=== PATIENT | female | born 1985 | race Caucasian/White ===

== ENCOUNTER 2020-12-02 17:09 | Inpatient (IN) | payer OTHER, SELFPAY ==
[2020-12-02] VITALS (12 sets, daily range): BP systolic 126–136; BP diastolic 65–88; PULSE 72–100; RESP 16–18; TEMP 36.7–36.8; BMI 46.5
--- NOTE | 2020-12-02 17:54 | LDADM ---
This patient, Jaquelin Heard, was admitted to Labor/Delivery/Recovery 108 on 12/02/20 at 17:09. Plans for labor, pain management and were discussed with patient. Patient/family oriented to hospital policies and general routines including ID bracelet, bed and alarms, visiting hours, pain management, procedures, bathroom and other care routines, personal items, smoking policy, room service/diet and guest tray routines, security routines, and visiting hours. Patient/Family are encouraged to report perceived risks to care and to ask questions if they do not understand what they are told or what they should do. See OBIX for further documentation.
[2020-12-02 18:03] LABS: Basophils Percent Auto 0.2 % (0.2-1.2); Eosinophils Absolute Auto 0.1 K/mm3 (0-0.3); Eosinophils Percent Auto 0.4 % (0-4.4); Hematocrit 36.5 % (37.0-47.0); Immature Granulocyte Absolute 0.12 K/mm3 (0.00-0.031); Immature Granulocyte Percent A 0.9 % (0-0.5); Lymphocytes Absolute Auto 2.31 K/mm3 (0.9-3.2); Lymphocytes Percent Auto 17.3 % (18.3-44.2); Mean Corpuscular HGB Conc 32.9 g/dl (32-36); Mean Corpuscular Hemoglobin 28.2 pg (26-34); Mean Corpuscular Volume 85.9 fl (80-100); Mean Platelet Volume 10.5 fl (7.4-10.4); Monocytes Absolute Auto 0.7 K/mm3 (0.1-0.6); Monocytes Percent Auto 5.5 % (2.6-8.5); Neutrophils Absolute Auto 10.1 K/mm3 (1.3-6.7); Neutrophils Percent Auto 75.7 % (45.5-73.1); Platelet Count Result 308 k/mm3 (150-375); Red Blood Count 4.25 M/mm3 (4.2-5.4); Red Cell Distribution Width 13.4 % (11.5-14.5); White Blood Count 13.4 K/mm3 (4.5-10.0)
[2020-12-02 18:12] LABS: Alanine Aminotransferase 131 U/L (4-35); Albumin Level 3.8 g/dL (3.5-5.1); Alkaline Phosphatase 269 U/L (38-126); Anion Gap 7 mmol/L (8-16); Aspartate Amino Transferase 93 U/L (14-36); Bilirubin,Total 0.4 mg/dL (0.2-1.3); Blood Urea Nitrogen 11 mg/dL (7-17); Calcium 9.3 mg/dL (8.4-10.2); Carbon Dioxide 21 mmol/L (22-30); Chloride 108 mmol/L (98-107); Estimated Glomerular Filt Rate > 60; Glucose 91 mg/dL (65-105); Potassium 4.1 mmol/L (3.4-5.0); Sodium 136 mmol/L (137-145)
[2020-12-02] MEDS: DINOPROSTONE 10 MG VAG INSERT VAGINAL (18:26)
[2020-12-02 18:48] LABS: HIV 1/2 Ab P24 Ag Result Negative (Negative)
[2020-12-02 19:01] LABS: Uric Acid 4.8 mg/dL (2.5-7.5)
[2020-12-02] MEDS: INSULIN HUMAN NPH (*BKC) 100 UNITS/ML 60 UNITS SUB-Q (20:34)
[2020-12-02 20:45] LABS: Glucose Point of Care 82 mg/dl (65-105)
[2020-12-03] VITALS (99 sets, daily range): BP systolic 112–152; BP diastolic 49–103; PULSE 56–156; RESP 18; TEMP 36.8–36.9; O2SAT 98–100
[2020-12-03 06:02] LABS: Glucose Point of Care 102 mg/dl (65-105)
[2020-12-03] MEDS: OXYTOCIN 30 UNITS/NS 500 ML 30 UNITS/500 ML BAG IV CONT (07:35)
[2020-12-03 08:14] LABS: Glucose Point of Care 105 mg/dl (65-105)
[2020-12-03 10:02] LABS: Glucose Point of Care 81 mg/dl (65-105)
[2020-12-03 10:31] LABS: Rapid Plasma Reagin Non-Reactive (NonReactive)
[2020-12-03 12:11] LABS: Glucose Point of Care 81 mg/dl (65-105)
[2020-12-03] MEDS: DEXTROSE 5%/LACTATED RINGERS 1,000 ML 100 ML IV CONT (12:24)
--- NOTE | 2020-12-03 12:34 | PM.IMHP ---
H&P: HPI History of Present Illness Date/Time: 12/03/20 12:34 Patient at 36 weeks by an EDC of 12/30 20 consistent with first trimester ultrasound. PNC significant for cholestasis of causing transaminitis. The transaminitits and symptoms initially did not respond to Ursodial but did start to improve with the max dose of Ursodial 600mg three times a day. Liver enzymes did start to decrease after increasing the Ursodial. The bile acid level increased. She has had gestational hypertension work ups and several 24 hour urines which have been negative for diagnosis of gestational hypertension. She denies headache or scotomata or worsening right upper quadrant pain. Today her liver function test have increased from last level. She has a history of steatosis prior to and have had intermittent mild elevations of liver function test and has been followed by a liver specialist. During this when her liver enzymes started increasing, peak in October. She was evaluated by [facility]. She had a liver ultrasound which was consistent with steatosis. The plan was to follow weekly LFTs. PNC also significant for gestational diabetes controlled with evening NPH for elevated fasting blood sugars. She has been seen by personal development educator. Her diabetes is controlled on 60NPH evening which she takes in divided doses. She has been getting surveillance which has been reassuring. PNC also significant for LGA measurements which has been consistently LGA since early second trimester. She has been counseled on risk of LGA and GDM to include shoulder dystocia. increased risk of ceserean delivery. We discussed that it is reasonable to attempt vaginal delivery but she is aware of her increased risk factors for cesearean delivery. We have discussed risk of prematurity to the to include NICU support. She is aware of those risk and understands the risk/benefit of delivery between 36-37 weeks as recommended by MFM due to cholestasis and LGA and risk of continuing to include distress, larger baby, demise. Discussed that at admission no signs or symptoms of pre-eclampsia but it can occur during or after labor and if it does then the managment with possible magnesium discussed. Her questions answered. labs reviewed. GBS negative. Chief Complaint: Induction of labor. Review of Systems Review of Systems: All systems reviewed & are unremarkable except as noted in HPI and below Constitutional: Constitutional: Reports no additional constitutional complaints and Denies headache(s) Eyes: Eyes: Denies spots in vision ENT: Reports system reviewed and no additional complaints, except as documented and Denies headache(s) Cardiovascular: Cardiovascular: Denies chest pain and Denies dyspnea Respiratory: Respiratory: Denies dyspnea Gastrointestinal: Gastrointestinal: Reports no additional gastrointestinal complaints Genitourinary: Genitourinary: Reports amenorrhea Musculoskeletal: Musculoskeletal: Reports no additional musculoskeletal complaints Integumentary/Breasts: Skin/Breast: Denies breast mass and Denies rash Neurologic: Denies headache(s) Psychiatric: Psychiatric: Reports no additional psychiatric complaints PMFSH Past Medical History Medical History Elevated liver function tests Gestational diabetes History of vaginal delivery x2 Morbid obesity Surgical History Surgical History H/O cardiac radiofrequency ablation History of cholecystectomy Family History Family History Mother Hypertension Father Hypertension Grandparent Hypertension Cerebrovascular accident Other Family history of malignant neoplasm Family history of type 2 diabetes mellitus Social History Social History Smoking st
--- NOTE | 2020-12-03 13:33 | PM.OBPNVD ---
OB - PN: Subj Subjective Date/time seen: 12/03/20 0720 FHT 140, Cat 1, ctx q 2-6, she rates a 5. Cervidil has been removed. Cervix int os ft/30%/high. Discussed with her that not a candidate for cytotec due to contractions. We discussed the process of pitocin induction. Discussed criteria for failed induction or if no change on 12 hours of Pitocin then option of trying Cytotec. Discussed that she does have a large baby and has risk for unsuccessful induction. Questions answered. OB - PN: Obj Data Labs CBC & Chem 7: 12/02/20 17:41 12/02/20 17:41 Labs: Laboratory Results - last 24 hr 12/02/20 12/02/20 12/02/20 17:41 17:41 17:41 WBC 13.4 H RBC 4.25 Hgb 12.0 Hct 36.5 L MCV 85.9 MCH 28.2 MCHC 32.9 RDW 13.4 Plt Count 308 MPV 10.5 H Immature Gran % (Auto) 0.9 H Neut % (Auto) 75.7 H Lymph % (Auto) 17.3 L [place] % (Auto) 5.5 Eos % (Auto) 0.4 Baso % (Auto) 0.2 Lymph # (Auto) 2.31 [place] # (Auto) 0.7 H Eos # (Auto) 0.1 Baso # (Auto) 0.0 Abs Immat Gran (auto) 0.12 H Absolute Neuts (auto) 10.1 H Absolute Nucleated RBC 0.0 Nucleated RBC % 0.0 Sodium Potassium Chloride Carbon Dioxide Anion Gap BUN Creatinine Estim Creat Clear Calc Estimated GFR Glucose POC Capillary Glucose Uric Acid 4.8 Calcium Total Bilirubin AST ALT Alkaline Phosphatase Total Protein Albumin RPR HIV 1&2 Ab/P24 Ag 4thGn Negative Blood Type Antibody Screen 12/02/20 12/02/20 12/02/20 17:41 17:42 18:32 WBC RBC Hgb Hct MCV MCH MCHC RDW Plt Count MPV Immature Gran % (Auto) Neut % (Auto) Lymph % (Auto) [place] % (Auto) Eos % (Auto) Baso % (Auto) Lymph # (Auto) [place] # (Auto) Eos # (Auto) Baso # (Auto) Abs Immat Gran (auto) Absolute Neuts (auto) Absolute Nucleated RBC Nucleated RBC % Sodium 136 L Potassium 4.1 Chloride 108 H Carbon Dioxide 21 L Anion Gap 7 L BUN 11 Creatinine 0.60 L Estim Creat Clear Calc Not Reportable Estimated GFR > 60 Glucose 91 POC Capillary Glucose Uric Acid Calcium 9.3 Total Bilirubin 0.4 AST 93 H ALT 131 H Alkaline Phosphatase 269 H Total Protein 7.0 Albumin 3.8 RPR Non-reactive HIV 1&2 Ab/P24 Ag 4thGn Blood Type O Positive Antibody Screen Negative 12/02/20 12/03/20 12/03/20 20:33 05:58 08:08 WBC RBC Hgb Hct MCV MCH MCHC RDW Plt Count MPV Immature Gran % (Auto) Neut % (Auto) Lymph % (Auto) [place] % (Auto) Eos % (Auto) Baso % (Auto) Lymph # (Auto) [place] # (Auto) Eos # (Auto) Baso # (Auto) Abs Immat Gran (auto) Absolute Neuts (auto) Absolute Nucleated RBC Nucleated RBC % Sodium Potassium Chloride Carbon Dioxide Anion Gap BUN Creatinine Estim Creat Clear Calc Estimated GFR Glucose POC Capillary Glucose 82 102 105 Uric Acid Calcium Total Bilirubin AST ALT Alkaline Phosphatase Total Protein Albumin RPR HIV 1&2 Ab/P24 Ag 4thGn Blood Type Antibody Screen 12/03/20 12/03/20 09:57 12:08 WBC RBC Hgb Hct MCV MCH MCHC RDW Plt Count MPV Immature Gran % (Auto) Neut % (Auto) Lymph % (Auto) [place] % (Auto) Eos % (Auto) Baso % (Auto) Lymph # (Auto) [place] # (Auto) Eos # (Auto) Baso # (Auto) Abs Immat Gran (auto) Absolute Neuts (auto) Absolute Nucleated RBC Nucleated RBC % Sodium Potassium Chloride Carbon Dioxide Anion Gap BUN Creatinine Estim Creat Clear Calc Estimated GFR Glucose POC Capillary Glucose 81 81 Uric Acid Calcium Total Bilirubin AST ALT Alkaline Phosphatase Total Protein Albumin RPR HIV 1&2 Ab/P24 Ag 4thGn Blood
[2020-12-03 13:42] LABS: Creatinine Urine 97.6 mg/dL; Total Protein Urine Random 8 mg/dL; Ur Ttl Prot Creatinine Ratio 0.08 mg/mg (0-0.20)
[2020-12-03 15:16] LABS: Glucose Point of Care 79 mg/dl (65-105)
[2020-12-03 16:32] LABS: Glucose Point of Care 74 mg/dl (65-105)
--- NOTE | 2020-12-03 17:17 | WPDANESEPP ---
Anes - Eval Pre Procedure Procedure: Labor epidural Date/Time: 12/03/20 17:17 Surgeon: Kerry Preop Diagnosis: ABD pain with contractions Pre Op Diagnosis: IOL Patient Data Age: 35 Gender: F Height: 1.75 m Weight: 143 kg Last Vital Signs Temp 98.3 F 12/03/20 04:07 Pulse 76 12/03/20 17:01 Resp 18 12/03/20 04:07 BP 134/69 12/03/20 17:01 Allergies Allergy/AdvReac Type Severity Reaction Status Date / Time No Known Allergies Allergy Verified 11/27/20 14:23 Home Medications Medication Instructions Recorded Confirmed Type prenat.vits,arlene,rfa-[id number] 1 tablet PO DAILY 06/26/20 12/02/20 History aspirin 81 mg tablet,delayed 81 mg PO DAILY 08/15/20 12/02/20 History release blood sugar diagnostic #100 ea 09/30/20 12/02/20 Rx blood-glucose meter #1 ea 09/30/20 12/02/20 Rx insulin NPH isoph U-100 human 100 60 unit SUBCUT QPM 10/31/20 12/02/20 History unit/mL subcutaneous cartridge ursodiol 300 mg capsule 600 mg PO TID cap 11/19/20 12/02/20 History nystatin 100,000 unit/gram topical 1 applic TOPICAL BID #15 g 11/28/20 12/02/20 Rx cream Laboratory Tests 12/02/20 12/02/20 12/02/20 17:41 17:41 17:41 WBC 13.4 K/mm3 H K/mm3 (4.5-10.0) RBC 4.25 M/mm3 M/mm3 (4.2-5.4) Hgb 12.0 g/dL g/dL (12.0-15.0) Hct 36.5 % L % (37.0-47.0) MCV 85.9 fl fl (80-100) MCH 28.2 pg pg (26-34) MCHC 32.9 g/dl g/dl (32-36) RDW 13.4 % % (11.5-14.5) Plt Count 308 k/mm3 k/mm3 (150-375) MPV 10.5 fl H fl (7.4-10.4) Immature Gran % (Auto) 0.9 % H % (0-0.5) Neut % (Auto) 75.7 % H % (45.5-73.1) Lymph % (Auto) 17.3 % L % (18.3-44.2) [place] % (Auto) 5.5 % % (2.6-8.5) Eos % (Auto) 0.4 % % (0-4.4) Baso % (Auto) 0.2 % % (0.2-1.2) Lymph # (Auto) 2.31 K/mm3 K/mm3 (0.9-3.2) [place] # (Auto) 0.7 K/mm3 H K/mm3 (0.1-0.6) Eos # (Auto) 0.1 K/mm3 K/mm3 (0-0.3) Baso # (Auto) 0.0 K/mm3 K/mm3 (0.0-0.1) Abs Immat Gran (auto) 0.12 K/mm3 H K/mm3 (0.00-0.031) Absolute Neuts (auto) 10.1 K/mm3 H K/mm3 (1.3-6.7) Absolute Nucleated RBC 0.0 K/mm3 K/mm3 (0.0-0.012) Nucleated RBC % 0.0 % % (0.0-0.2) Sodium Potassium Chloride Carbon Dioxide Anion Gap BUN Creatinine Estim Creat Clear Calc Estimated GFR Glucose POC Capillary Glucose Uric Acid 4.8 mg/dL mg/dL (2.5-7.5) Calcium Total Bilirubin AST ALT Alkaline Phosphatase Total Protein Albumin U Random Total Protein Urine Creatinine Protein/Creat Ratio 2 RPR HIV 1&2 Ab/P24 Ag 4thGn Negative (Negative) Blood Type Antibody Screen 12/02/20 12/02/20 12/02/20 17:41 17:42 18:32 WBC RBC Hgb Hct MCV MCH MCHC RDW Plt Count MPV Immature Gran % (Auto) Neut % (Auto) Lymph % (Auto) [place] % (Auto) Eos % (Auto) Baso % (Auto) Lymph # (Auto) [place] # (Auto) Eos # (Auto) Baso # (Auto) Abs Immat Gran (auto) Absolute Neuts (auto) Absolute Nucleated RBC Nucleated RBC % Sodium 136 mmol/L L mmol/L (137-145) Potassium 4.1 mmol/L mmol/L (3.4-5.0) Chloride 108 mmol/L H mmol/L (98-107) Carbon Dioxide 21 mmol/L L mmol/L (22-30) Anion Gap 7 mmol/L L mmol/L (8-16) BUN 11 mg/dL mg/dL
[2020-12-03 18:18] LABS: Glucose Point of Care 98 mg/dl (65-105)
--- NOTE | 2020-12-03 19:07 | PM.OBPNVD ---
OB - PN: Subj Subjective Date/time seen: 12/03/20 19:07 fht 145, cat 1, /-2 AROM, clear. Continue Pitocin augmentation. OB - PN: Obj Data Labs CBC & Chem 7: 12/02/20 17:41 12/02/20 17:41 Labs: Laboratory Results - last 24 hr 12/02/20 12/02/20 12/02/20 17:42 18:32 20:33 POC Capillary Glucose 82 U Random Total Protein Urine Creatinine Protein/Creat Ratio 2 RPR Non-reactive Blood Type O Positive Antibody Screen Negative 12/03/20 12/03/20 12/03/20 05:58 08:08 09:57 POC Capillary Glucose 102 105 81 U Random Total Protein Urine Creatinine Protein/Creat Ratio 2 RPR Blood Type Antibody Screen 12/03/20 12/03/20 12/03/20 12:08 13:09 14:26 POC Capillary Glucose 81 79 U Random Total Protein 8 Urine Creatinine 97.6 Protein/Creat Ratio 2 0.08 RPR Blood Type Antibody Screen 12/03/20 12/03/20 16:15 18:11 POC Capillary Glucose 74 98 U Random Total Protein Urine Creatinine Protein/Creat Ratio 2 RPR Blood Type Antibody Screen OB - PN A/P Time Spent With Patient Time: Total time spent is greater than 50% in coordination of care (as documented) at patient's floor/unit and/or counseling patient:
[2020-12-03] MEDS: LACTATED RINGERS 1,000 ML 125 ML IV CONT (19:44)
[2020-12-03 20:13] LABS: Glucose Point of Care 81 mg/dl (65-105)
[2020-12-03 22:32] LABS: Glucose Point of Care 84 mg/dl (65-105)
--- NOTE | 2020-12-03 23:40 | PM.OBPNVD ---
OB - PN: Subj Subjective Date/time seen: 12/03/20 23:40 fht 130, Cat 1, cervix right ant lip/rim. OB - PN: Obj Data Labs CBC & Chem 7: 12/02/20 17:41 12/02/20 17:41 Labs: Laboratory Results - last 24 hr 12/02/20 12/03/20 12/03/20 17:42 05:58 08:08 POC Capillary Glucose 102 105 U Random Total Protein Urine Creatinine Protein/Creat Ratio 2 RPR Non-reactive 12/03/20 12/03/20 12/03/20 09:57 12:08 13:09 POC Capillary Glucose 81 81 U Random Total Protein 8 Urine Creatinine 97.6 Protein/Creat Ratio 2 0.08 RPR 12/03/20 12/03/20 12/03/20 14:26 16:15 18:11 POC Capillary Glucose 79 74 98 U Random Total Protein Urine Creatinine Protein/Creat Ratio 2 RPR 12/03/20 12/03/20 20:10 22:15 POC Capillary Glucose 81 84 U Random Total Protein Urine Creatinine Protein/Creat Ratio 2 RPR OB - PN A/P Time Spent With Patient Time: Total time spent is greater than 50% in coordination of care (as documented) at patient's floor/unit and/or counseling patient:
[2020-12-04] VITALS (17 sets, daily range): BP systolic 116–152; BP diastolic 51–96; PULSE 59–124; RESP 16–18; TEMP 36.4–36.8; O2SAT 98–100
--- NOTE | 2020-12-04 00:23 | P.PCNOB_ITS ---
OB - Delivery Note Procedure Delivery date: 12/04/20 Procedure: Spontaneous vaginal delivery events: Labor Induction Induction method: per pitocin protocol and per cervidil protocol Delivery augmentation: rupture of membranes Delivery monitor: external FHT Route of delivery: Laceration Description: Perineal - 1st Degree Delivery repair: vicryl (3.0 vicryl) Specimen: Yes Quantitative Blood Loss (ml): 250 Anesthesia type: Epidural Disposition: floor Complications: Mild shoulder dystocia Narrative: Patient admitted for [facility] for cholestasis of with transaminitis which did not resolve on Ursodial. PNC also significant for insulin requiring GDM. She was admitted on 12/02 and started on cervidil due to unfavorable cervix. The morning of 12/03 cervidil removed, she was having moderate contractions and cervix was ft/th/-4. She was started on Pitocin. She did progress to 4cm and had AROM clear fluid. She progressed into active labor. Epidural was placed on request. She dilated to complete. She pushed for less than ten minutes and delivered a female infant. There was a mild shoulder dystocia lasting ten seconds relieved with modified Aleksandra and suprapubic pressure. Peds present as requested for labor and GDM. Infant was vigorously crying and placed on maternal abdomen. Delayed cord clamping for 45 seconds. Cord blood and cord gases obtained. Placenta delivered spontaneously and intact. Baby Date of : 12/04/20 Time of : 00:04 Weeks of gestation at delivery: 36 gender: Female Weight (pounds): 7 Weight (ounces): 11 presentation: vertex position: Right Occiput Anterior Placenta delivery description: Spontaneous cord vessel description: 3 Vessels and Delayed Cord Clamping score one minute: 9 score five minutes: 9
[2020-12-04] MEDS: OXYTOCIN 30 UNITS/NS 500 ML 30 UNITS/500 ML BAG 125 UNITS IV CONT (00:31)
[2020-12-04] MEDS: IBUPROFEN 600 MG TABLET PO ×3 (05:20→18:31)
--- NOTE | 2020-12-04 09:36 | PM.OBPNVD ---
OB - PN: Subj Subjective Date/time seen: 12/04/20 09:36 Patient doing well this morning. Denies any significant abdominal pain. Minimal lochia. Denies any headache, chest pain shortness of breath, nausea, vomiting. Baby transferred. Patient requesting a day pass to go visit baby today. OB - PN: Obj Data Labs CBC & Chem 7: 12/02/20 17:41 12/02/20 17:41 Labs: Laboratory Results - last 24 hr 12/02/20 12/03/20 12/03/20 17:42 09:57 12:08 POC Capillary Glucose 81 81 U Random Total Protein Urine Creatinine Protein/Creat Ratio 2 RPR Non-reactive 12/03/20 12/03/20 12/03/20 13:09 14:26 16:15 POC Capillary Glucose 79 74 U Random Total Protein 8 Urine Creatinine 97.6 Protein/Creat Ratio 2 0.08 RPR 12/03/20 12/03/20 12/03/20 18:11 20:10 22:15 POC Capillary Glucose 98 81 84 U Random Total Protein Urine Creatinine Protein/Creat Ratio 2 RPR OB - PN A/P Assessment and Plan (1) delivery after induction of labor: Code(s): O60.10X0 - labor with delivery, unspecified trimester, not applicable or unspecified Status: Acute Assessment and Plan: doing well continue routine care may have day pass to go visit infant anticipate dc home tomorrow (2) Elevated liver function tests: Code(s): R79.89 - Other specified abnormal findings of blood chemistry Status: Acute Assessment and Plan: secondary to cholestasis of may continue ursodiol today will repeat LFTs today or tomorrow to ensure trending down Time Spent With Patient Time: Total time spent is greater than 50% in coordination of care (as documented) at patient's floor/unit and/or counseling patient: Exam Const: General: cooperative, healthy appearing, comfortable and no acute distress Nutritional Appearance: obese GI: GI Palp: Yes Soft to palpation and No Tenderness to palpation present (GI) Other: fundus firm below umbilicus Extrem: Right lower extremity: edema Details: 1+ Left lower extremity: edema Details: 1+ Other: no calf tenderness
--- NOTE | 2020-12-04 11:00 | PC.NURSE ---
Consult with pt., mother requests assist with her Spectra pump. Mother is currently using the hospital pump due to transfer. Reviewed her pump, mother will continue using hospital pump while here. Reviewed breast pump care and usage, pumping schedule, nipple care, and collection and storage of breast milk. Encouraged [id number], breast massage and manual expression to stimulate supply. Assessed patient for correct flange size 27mm, placement and draw. Patient verbalizes and demonstrates understanding of instructions.
[2020-12-04] MEDS: DOCUSATE SODIUM 100 MG CAPSULE PO ×2 (11:45→19:55)
[2020-12-04] MEDS: MULTIVIT/MIN/PREN/FOL AC/IRON TABLET 1 TAB PO (11:45)
[2020-12-04] MEDS: LANOLIN (LANSINOH) 7.5 GM CREAM 1 APPLIC TOPICAL (11:46)
--- NOTE | 2020-12-04 21:27 | PC.NURSE ---
1245 Pt left on a pass to see her baby at [facility]. 1800 pt returned to the hospital from her pass.
[2020-12-05] MEDS: IBUPROFEN 600 MG TABLET PO (04:30)
[2020-12-05 05:50] LABS: Hematocrit 34.2 % (37.0-47.0); Hemoglobin 10.9 g/dL (12.0-15.0)
[2020-12-05 06:00] LABS: Alanine Aminotransferase 119 U/L (4-35); Albumin Level 2.9 g/dL (3.5-5.1); Alkaline Phosphatase 231 U/L (38-126); Aspartate Amino Transferase 69 U/L (14-36); Bilirubin,Total 0.3 mg/dL (0.2-1.3)
--- NOTE | 2020-12-05 08:45 | PC.NURSE ---
Mother continues to pump without difficulties or discomfort. Reviewed transition to breast milkand engorgement/relief. Reviewed regular medications mother is taking. Information provided per Nidia. Reviewed community resources on the [facility] website and in the Mom/Baby guide. Information on outpatient services provided. Mother has no further questions at this time.
--- NOTE | 2020-12-05 08:58 | WPDANLDPN2 ---
Anes-Prog Note L&D Date/Time: 12/05/20 08:58 Comfortable throughout: labor and delivery Neuraxial method: epidural Epidural/Spinal procedure site: clean & non-tender Neuro status: Neuro function grossly intact. Cardiovascular status: normal Respiratory status: normal Airway patency: baseline Mental status: baseline Post-Op hydration status: normal Vital Signs: Last Vital Signs Temp 36.4 C 12/04/20 19:53 Pulse 97 12/04/20 19:53 Resp 16 12/04/20 19:53 BP 119/55 L 12/04/20 19:53 Pulse Ox 98 12/04/20 11:52 Pain score (VAS): 06/01 Post-procedural complaints: none Patient feedback: Patient satisfied with anesthetic care.
[2020-12-05] MEDS: MULTIVIT/MIN/PREN/FOL AC/IRON TABLET 1 TAB PO (09:18)
[2020-12-05] MEDS: DOCUSATE SODIUM 100 MG CAPSULE PO (09:20)
[2020-12-05 10:40] VITALS: BP 139/88; PULSE 102; RESP 18; TEMP 36.3; O2SAT 98
--- NOTE | 2020-12-05 12:50 | PC.NURSE ---
Patient viewed the discharge video Mother & Baby Care, The First Two Weeks . Patient was given the opportunity and encouraged to ask questions. Patient verbalized understanding of information shared and has been given the mother/baby guide for home reference.
--- NOTE | 2021-01-09 10:57 | PM.DS ---
DS: Admitting Diagnosis Admitting Diagnosis 1. Cholestasis of 2. Gestational diabetes DS: Discharge Diagnosis Discharge Diagnosis (1) delivery after induction of labor: Code(s): O60.10X0 - labor with delivery, unspecified trimester, not applicable or unspecified Status: Acute (2) Gestational diabetes: Code(s): O24.419 - Gestational diabetes mellitus in , unspecified control Status: Acute (3) Elevated liver function tests: Code(s): R79.89 - Other specified abnormal findings of blood chemistry Status: Acute (4) Cholestasis during in third trimester: Code(s): O26.613 - Liver and biliary tract disorders in , third trimester; K83.1 - Obstruction of bile duct Status: Acute DS: Summary Hospital Course Hospital Course: patient was admitted on 12/02 for Cervidil for cervical ripening. Cervidil was removed the following morning. Her cervix was fingertip and thick. She was heather frequently and therefore Pitocin was started. She did have blood sugars checked throughout labor which were normal. She did dilate to active labor and then she progressed to complete. She had a spontaneous vaginal delivery complicated by mild shoulder dystocia. she did well she was ambulating well tolerating regular food had adequate pain control. Her baby was transferred to [facility] due to respiratory issues. She was discharged to home on day 1. Her blood pressures were normal. She was given discharge precautions. Discharge medications were vitamins and for her to continue the Ursodiol. And pelvic rest precautions discussed. She was to follow up within 1 week. Status at Discharge Functional status at discharge: independent ambulation Overall status at discharge: patient is back to baseline Time Spent with Patient Time attestation: Total time spent providing and/or coordinating discharge services: Exam Const: General: cooperative Orientation/consciousness: oriented to person, oriented to place and oriented to time HENMT: General nose exam: Normal external nose present Eyes: General: appearance normal, both eyes and all related structures Resp: Effort & Inspection: normal respiratory effort GI: Inspection: normal to inspection Skin: General skin exam: normal color Neuro: General: oriented to person, oriented to place and oriented to time Extrem: General: normal to inspection and no calf tenderness Psych: Appearance: grossly normal Mental Status: mental status grossly normal Discharge Plan Discharge Attending physician on discharge: Peter Payne Consulting providers: Xavier Mcgraw ; Violeta Cody Discharging Clinician: Peter Payne Anticipated Discharge Date/Time: 12/05/20 09:41 Patient Disposition: Home, Self-Care Activity: may shower and pelvic rest Diet: regular Discharge Instructions: Education: Mom and Baby Guide Given to: Mother Follow-Up: Call your delivering provider's office for an appointment to be seen in: 1 Week Mom and baby should come to the [facility] for the follow-up appointment. Appointment Date/Time: deferred; pt to see Dr. Payne in office in one week. What to expect at your follow-up visit: Call [phone] if you are unable to keep your appointment time. BREAST CARE: * Wear a snug supportive bra. * For engorgement discomfort: Breast Feeding: * Apply warm moist washcloths * Express milk as needed to relieve engorgement * Wear loose clothing * For sore nipples: * Identify correct latch-on * Apply warm moist washcloths before and after nursing * Air dry nipples after nursing * May apply Lansinoh cream to nipples EPISIOTOMY/PERINEAL CARE: * Until bleeding stops, use your aleah bottle after urinating * Change your pad frequ
== END 2020-12-05 12:37 | disposition home or self-care (01) | DRG 805 ==
LOC: ANHLDR 17:17 → ANHOB2 12-04 03:03
PROVIDERS: Admitting Provider Obstetrics & Gynecology; PCP Family Medicine; Visit Provider Obstetrics & Gynecology
DX: O26.62 Liver and biliary tract disorders in childbirth (principal); K83.1 Obstruction of bile duct; Z37.0 Single live birth; O60.14X0 Preterm labor third trimester with preterm delivery third trimester, not applicable or unspecified; Z3A.36 36 weeks gestation of pregnancy; O13.4 Gestational [pregnancy-induced] hypertension without significant proteinuria, complicating childbirth; O70.0 First degree perineal laceration during delivery; O66.0 Obstructed labor due to shoulder dystocia; O99.214 Obesity complicating childbirth; E66.01 Morbid (severe) obesity due to excess calories; O24.424 Gestational diabetes mellitus in childbirth, insulin controlled; O36.63X0 Maternal care for excessive fetal growth, third trimester, not applicable or unspecified
CPT/HCPCS: 36415; 80053; 80076; 82570; 82948; 84156; 84550; 85014; 85018; 85025; 86592; 86703; 86850; 86900; 86901; A9270; G0432; J1815; J2590; J2795; J7120; J7121

== ENCOUNTER 2020-12-10 18:06 | Outpatient (CLI) | payer OTHER, SELFPAY ==
[2020-12-10 20:53] LABS: Basophils Absolute Auto 0.1 K/mm3 (0.0-0.1); Basophils Percent Auto 0.5 % (0.2-1.2); Eosinophils Absolute Auto 0.1 K/mm3 (0-0.3); Eosinophils Percent Auto 1.1 % (0-4.4); Hematocrit 35.2 % (37.0-47.0); Hemoglobin 11.3 g/dL (12.0-15.0); Immature Granulocyte Absolute 0.11 K/mm3 (0.00-0.031); Lymphocytes Absolute Auto 2.73 K/mm3 (0.9-3.2); Lymphocytes Percent Auto 25.2 % (18.3-44.2); Mean Corpuscular HGB Conc 32.1 g/dl (32-36); Mean Corpuscular Hemoglobin 28.8 pg (26-34); Mean Corpuscular Volume 89.6 fl (80-100); Mean Platelet Volume 9.8 fl (7.4-10.4); Monocytes Absolute Auto 0.7 K/mm3 (0.1-0.6); Monocytes Percent Auto 6.6 % (2.6-8.5); Neutrophils Absolute Auto 7.1 K/mm3 (1.3-6.7); Neutrophils Percent Auto 65.6 % (45.5-73.1); Platelet Count Result 289 k/mm3 (150-375); Red Blood Count 3.93 M/mm3 (4.2-5.4); Red Cell Distribution Width 13.6 % (11.5-14.5); White Blood Count 10.8 K/mm3 (4.5-10.0)
[2020-12-10 21:01] VITALS: BP 129/86; PULSE 60
[2020-12-10 21:03] LABS: Alanine Aminotransferase 59 U/L (4-35); Albumin Level 3.4 g/dL (3.5-5.1); Alkaline Phosphatase 225 U/L (38-126); Anion Gap 6 mmol/L (8-16); Aspartate Amino Transferase 38 U/L (14-36); Bilirubin,Total 0.3 mg/dL (0.2-1.3); Blood Urea Nitrogen 19 mg/dL (7-17); Calcium 9.3 mg/dL (8.4-10.2); Carbon Dioxide 27 mmol/L (22-30); Chloride 105 mmol/L (98-107); Estimated Glomerular Filt Rate > 60; Glucose 93 mg/dL (65-110); Potassium 4.2 mmol/L (3.4-5.0); Sodium 138 mmol/L (137-145); Uric Acid 6.4 mg/dL (2.5-7.5)
[2020-12-10 21:18] VITALS: BP 134/74; PULSE 60
[2020-12-10 21:31] VITALS: BP 121/71; PULSE 60
[2020-12-10 21:46] VITALS: BP 121/71; PULSE 53
--- NOTE | 2020-12-10 21:55 | PC.NURSE ---
Dr. Payne notified of lab results. Will discharge to home. Pt states she has appointment in AM.
--- NOTE | 2020-12-11 06:36 | PC.NURSE ---
Pt states she has had intermittent headache for one week. Headache improved this evening but was severe this afternoon. Sent in for [facility]MJIT mcdowell.
== END 2020-12-10 22:00 | disposition home or self-care (01) ==
LOC: ANHOBOP 20:11 → ANHOBPP 20:39
PROVIDERS: PCP Family Medicine; Visit Provider Obstetrics & Gynecology
DX: O13.3 Gestational [pregnancy-induced] hypertension without significant proteinuria, third trimester (principal); R51.9 Headache, unspecified; Z3A.36 36 weeks gestation of pregnancy
CPT/HCPCS: 36415; 80053; 84550; 85025; 99199

== ENCOUNTER 2022-12-10 10:19 | Outpatient (CLI) | payer OTHER, SELFPAY ==
--- NOTE | ~2022-12-10 | MMUS_ITS ---
EXAMINATION: MM diagnostic [facility] w wilver, US breast RT limited HISTORY: Palpable right breast abnormality TECHNIQUE: Additional 3-D tomosynthesis images of the breasts were performed and synthetic 2-D images were generated. CAD analysis was submitted and interpreted. High resolution Limited right breast ult rasound was performed. COMPARISON: None BREAST PARENCHYMAL COMPOSITION: BREAST PARENCHYMAL COMPOSITION: There are scattered areas of fibroglandular density. FINDINGS: MAMMOGRAPHIC FINDINGS: There are no suspicious masses, calcifications or architectural distortion to suggest malignancy. ULTRASOUND: Limited right breast ultrasound: Normal heterogeneous echotexture without focal solid or cystic mass. IMPRESSION: 1. No evidence for malignancy in either breast. 2. Routine yearly screening mammogram and regular clinical breast examination are recommended. BI-RADS Category 1: Negative Reviewed, dictated and finalized at location A. IMPRESSION: 1. No evidence for malignancy in either breast. 2. Routine yearly screening mammogram and regular clinical breast examination a re recommended. BI-RADS Category 1: Negative
== END 2022-12-10 10:20 | disposition home or self-care (01) ==
LOC: CHSIMG 10:21
PROVIDERS: Visit Provider Obstetrics & Gynecology
DX: N63.10 Unspecified lump in the right breast, unspecified quadrant (principal)
CPT/HCPCS: 76642; 77062; 77066; G0279

== ENCOUNTER 2024-11-02 10:56 | Outpatient (CLI) | payer OTHER, SELFPAY ==
--- NOTE | ~2024-11-02 | US_ITS ---
Pelvic ultrasound. Clinical History: Intrauterine device assessment Technique: Realtime transabdominal and transvaginal scanning of the pelvis was performed. Color flow Doppler and Doppler spectral analysis were performed. Findings: The uterus is anteverted. The endometrial stripe has a thickness of 5 mm. Trace fluid pres ent in the endometrial cavity. IUD in satisfactory position. No focal mass is identified. The right ovary measures 3.0 x 1.5 x 1.9 cm. No significant right ovarian or adnexal mass is seen. The left ovary measures 3.2 x 2.2 x 1.9 cm. No significant left ovarian or adnexal mass is seen. There is no evidence of free fluid in the cul de sac. Impression: IUD in satisfactory position. Reviewed, dictated and finalized at location . Impression: IUD in satisfactory position.
== END 2024-11-02 10:57 | disposition home or self-care (01) ==
LOC: GOSHIMG 10:57
PROVIDERS: PCP Obstetrics & Gynecology; Visit Provider Obstetrics & Gynecology
DX: Z30.431 Encounter for routine checking of intrauterine contraceptive device (principal)
CPT/HCPCS: 76830; 76856